=== PATIENT | male | born 1985 | race Caucasian/White ===

== ENCOUNTER 2018-06-25 12:24 | Day surgery (SDC) | payer BC ==
[2018-06-25] MEDS ORDERED: PROPOFOL 80 ML (14:03)
[2018-06-25] MEDS ORDERED: LIDOCAINE 2% (SDV) 5 ML INJ (14:04)
== END 2018-06-25 16:10 | disposition home or self-care (01) ==
LOC: GIL 12:24
DX: R19.4 Change in bowel habit (principal); D12.6 Benign neoplasm of colon, unspecified
CPT/HCPCS: 43239; 88305; 88312